=== PATIENT | female | born 1990 | race Two or more races ===

== ENCOUNTER 2022-04-10 12:09 | Emergency (ER) | payer OTHER ==
[~2022-04-10] VITALS: Ht 167.6 cm; Wt 79.4 kg
--- NOTE | 2022-04-10 12:15 | NUR ---
[email or web address], medical screening exam in progress
--- NOTE | 2022-04-10 12:19 | NUR ---
Patient is unable to recall the exact names & dosages of her home medicines.
--- NOTE | 2022-04-10 12:22 | NUR ---
Patient said, "I ran out of my blood pressure medicines. I have the empty bottles in my car. Can I show them to you?"
--- NOTE | 2022-04-10 12:27 | NUR ---
PT IN FOR BILAT LE PAIN AND REPORTS HX OF HTN. UNABLE TO RECALL NAME OF MED AND HAS GONE TO HER CAR FOR BOTTLE TO SHOW PHYSICIAN.
[2022-04-10] MEDS ORDERED: LISI40TA13 PO ×2 (12:55→13:30)
[2022-04-10] MEDS ORDERED: METO-357 PO ×2 (12:55→13:31)
[2022-04-10] MEDS ORDERED: FURO40TA5 PO ×2 (12:55→13:30)
--- NOTE | 2022-04-10 13:05 | NUR ---
PATIENT BACK IN ROOM AND ALSO STATED THAT SHE RUN OUT OF HER MEDICATIONS FOR TREATING HER HIGH BLOOD PRESSURE
[2022-04-10 13:10] LABS: ALANINE AMINOTRANSFERASE 76 U/L (14-59); ALKALINE PHOSPHATASE 130 U/L (50-136); ASPARTATE AMINOTRANSFERASE 59 U/L (15-37); BILIRUBIN,DIRECT 0.3 mg/dL (0.0-0.2); BILIRUBIN,TOTAL 0.9 mg/dL (0.2-1.0); CARBON DIOXIDE 30 mmol/L (21-32); CHLORIDE 104 mmol/L (98-107); CREATININE 1.1 mg/dL (0.6-1.3); GLUCOSE 88 mg/dL (74-106); POTASSIUM 3.2 mmol/L (3.5-5.1); TOTAL PROTEIN, SERUM 7.9 g/dL (6.4-8.2); UREA NITROGEN, BLOOD 17 mg/dL (7-18)
[2022-04-10 13:13] LABS: HEMATOCRIT 36.5 % (31.2-41.9); MEAN CORPUSCULAR HEMOGLOBIN 26.9 uug (24.7-32.8); MEAN CORPUSCULAR VOLUME 83.4 fL (75.5-95.3); PLATELET COUNT (AUTO) 257 K/uL (179-408)
[2022-04-10] MEDS ORDERED: FUROSEMIDE 20 MG TABLET PO ONE (13:30)
[2022-04-10] MEDS ORDERED: POTASSIUM CHLORIDE 20 MEQ TAB.PRT.SR PO ONE (13:30)
[2022-04-10] MEDS ORDERED: CEPH500C2 PO (13:31)
[2022-04-10] MEDS ORDERED: POTASSIUM CHLORIDE 20 MEQ TAB.PRT.SR ONE (13:51)
--- NOTE | 2022-04-10 13:51 | NUR ---
MEDICATED WITH LASIX 40 MG AND K-DUR 40 MQEQ PO FOR HYPOKALEMIA.PER DR. ELISA BHAGAT TO DISCHARGE PATIENT HOME WITH ELEVATED B/P SHE HAS MEDICATIONS ON BOARD. 163/113
[2022-04-10 14:30] VITALS: BP 163/113
== END 2022-04-10 14:04 | disposition home or self-care (01) ==
LOC: ER 12:09
DX: I11.0 Hypertensive heart disease with heart failure (principal); I50.9 Heart failure, unspecified; L03.116 Cellulitis of left lower limb; Z91.14 Patient's other noncompliance with medication regimen; R60.0 Localized edema; E87.6 Hypokalemia; R00.0 Tachycardia, unspecified
CPT/HCPCS: 36415; 71045; 84484; 85025; 93005; A4663